=== PATIENT | female | born 1980 | race Caucasian/White ===

== ENCOUNTER 2019-04-12 15:16 | Inpatient (IN) | payer BC ==
[2019-04-12 15:58] VITALS: BMI 44.8
[2019-04-12] MEDS ORDERED: Promethazine HCl 25 MG/ML VIAL IM PRN ×3 (16:22→21:40)
[2019-04-12] MEDS ORDERED: Ondansetron PF 4 MG/2 ML Vial IVP PRN ×3 (16:22→21:40)
[2019-04-12] MEDS ORDERED: hydrALAZINE 20 MG/ML VIAL SLOW IVP PRN ×2 (16:22→21:40)
--- NOTE | 2019-04-12 16:27 | PDOC.LDHP ---
Labor and Delivery H&P HPI: 38 y/o at 38 and 4/7 weeks with Polyhydramnios, LGA Fetus measuring 10 pounds 8 ounces today. Patient has developed GHTN, but is declining induction of labor in favor of a . She is unwilling to accept the risks of delivering a fetus of this size. Current gestational age (weeks): 38 Due date: 04/22/19 Grav: 4 Para: 1 Current complications: gestational hypertension Abnormal US findings: Yes (LGA Fetus, Polyhydramnios) Current medications: pre- vitamins Allergies/Adverse Reactions: Allergies Allergy/AdvReac Type Severity Reaction Status Date / Time No Known Allergies Allergy Verified 04/12/19 15:59 Social history: none - Physical Exam Vital signs reviewed and normal: yes General: NAD Heart: RRR Lungs: CTAB Abdomen: gravid Extremeties: no edema FHT: category 1 - Assessment L&D Assessment: scheduled primary section - Plan Plan: admit to L&D, to OR for section
[2019-04-12] MEDS ORDERED: Bicitra 30 ML UDCUP PO SCH (16:30)
[2019-04-12] MEDS ORDERED: CEFAZOLIN 2 GM in Premix Bag 1 BAG IVPB SCH (16:30)
[2019-04-12] MEDS ORDERED: Lactated Ringer's 1,000 ML IV SCH (16:30)
[2019-04-12 16:31] LABS: Hemoglobin 10.4 g/dL (12.0-16.0); Mean Corpuscular HGB CONC 34.1 g/dL (32.0-36.0); Mean Corpuscular Hemoglobin 27.8 pg (27.0-31.0); Mean Corpuscular Volume 81.7 fL (78.0-98.0); Platelet Count 195 thou/uL (130-400); RBC Distribution Width 13.8 % (11.5-14.5); Red Blood Cell (RBC) Count 3.73 mill/uL (4.20-5.40); White Blood Cell (WBC) Count 12.8 thou/uL (4.8-10.8)
[2019-04-12] MEDS ORDERED: MORPHINE 5 MG/10 ML PF VIAL ONE (16:44)
[2019-04-12] MEDS ORDERED: EPHEDRINE 25 MG/5 ML SYRINGE ONE (16:44)
[2019-04-12] MEDS ORDERED: Ondansetron PF 4 MG/2 ML Vial ONE (16:44)
[2019-04-12] MEDS ORDERED: Oxytocin 10 UNITS/ML VIAL ONE ×2 (16:44→18:48)
[2019-04-12 17:11] LABS: Syphilis Antibody Nonreactive (Nonreactive); Syphilis Antibody Index 0.05 S/CO (<1.00 Non-Reactive)
[2019-04-12 17:12] LABS: HBSAg Index 0.24 S/CO (0-0.99); Hep B Surf Ag Non-Reactive S/CO (NonReactive)
[2019-04-12] MEDS ORDERED: Ketorolac Tromethamine 30 MG/ML VIAL ONE (19:09)
[2019-04-12] MEDS ORDERED: diphenhydrAMINE 50 MG/ML VIAL IVP PRN (20:19)
[2019-04-12] MEDS ORDERED: Meperidine HCl/PF 25 MG/ML VIAL SLOW IVP PRN (20:19)
[2019-04-12] MEDS ORDERED: L&D-Morphine 4 MG/ML VIAL SLOW IVP PRN (20:19)
[2019-04-12] MEDS ORDERED: Ketorolac Tromethamine 30 MG/ML VIAL IVP PRN (20:19)
[2019-04-12] MEDS ORDERED: Promethazine HCl 25 MG SUPP PR PRN (20:19)
[2019-04-12] MEDS ORDERED: HYDROmorphone 2 MG/ML VIAL SLOW IVP PRN (20:19)
[2019-04-12] MEDS ORDERED: Ondansetron HCl/PF 4 MG/2 ML Vial IVP PRN (20:19)
[2019-04-12] MEDS ORDERED: Naloxone HCl 0.4 mg/ml Vial IV PRN (20:19)
[2019-04-12] MEDS ORDERED: Naloxone HCl 0.4 mg/ml Vial IVP PRN ×2 (20:19)
[2019-04-12] MEDS ORDERED: Communication Order-Pharmacy FS SCH (20:30)
[2019-04-12] MEDS ORDERED: Ketorolac Tromethamine 30 MG/ML VIAL IVP SCH (20:30)
[2019-04-12] MEDS ORDERED: Morphine 4 MG/ML VIAL ONE (21:11)
[2019-04-12] MEDS ORDERED: HYDROcodone/Acetaminophen 5/325 mg Tablet PO PRN (21:40)
[2019-04-12] MEDS ORDERED: NS / Oxytocin 40 units/1000ml 1,000 ML IV SCH (21:40)
[2019-04-12] MEDS ORDERED: Zolpidem Tartrate 5 MG TAB PO PRN (21:40)
[2019-04-12] MEDS ORDERED: Misoprostol 200 MCG TAB PR PRN (21:40)
[2019-04-12] MEDS ORDERED: Lanolin Ointment 7 GM TUBE TOP PRN (21:40)
[2019-04-12] MEDS ORDERED: Bisacodyl 10 MG SUPP PR PRN (21:40)
[2019-04-12] MEDS ORDERED: Docusate Calcium (SURFAK) 240 MG CAP PO SCH (22:15)
[2019-04-12] MEDS: Simethicone Chewable 80 MG TAB PO PRN (22:47)
[2019-04-12] MEDS: Ibuprofen 800 MG TAB PO SCH (22:51)
[2019-04-13] MEDS: Ibuprofen 800 MG TAB PO SCH ×3 (05:52→21:26)
[2019-04-13 06:21] LABS: Hemoglobin 8.6 g/dL (12.0-16.0); Mean Corpuscular HGB CONC 32.3 g/dL (32.0-36.0); Mean Corpuscular Hemoglobin 27.4 pg (27.0-31.0); Mean Corpuscular Volume 84.6 fL (78.0-98.0); Mean Platelet Volume 10.9 fL (7.4-10.4); Platelet Count 154 thou/uL (130-400); RBC Distribution Width 13.7 % (11.5-14.5); Red Blood Cell (RBC) Count 3.13 mill/uL (4.20-5.40); White Blood Cell (WBC) Count 11.8 thou/uL (4.8-10.8)
[2019-04-13] MEDS ORDERED: Varicella virus, LIVE 0.5 ML VIAL SC ONE (09:00)
[2019-04-13] MEDS ORDERED: Measles/Mumps/Rubella 10 MCG/0.5 ML VIAL SC ONE (09:00)
[2019-04-13] MEDS ORDERED: Adacel (T-DAP) 0.5 ML SYRINGE IM ONE (09:00)
[2019-04-13] MEDS: Prenatal Vitamin 1 TAB PO SCH (09:37)
[2019-04-13] MEDS: Docusate Calcium (SURFAK) 240 MG CAP PO SCH ×2 (09:37→21:26)
[2019-04-13] MEDS: HYDROcodone/Acetaminophen 5/325 mg Tablet PO PRN ×3 (09:37→20:06)
--- NOTE | 2019-04-13 18:59 | PDOC.PP ---
Post Progress Note Post Day #: 1 PO intake tolerated: yes Flatus: yes Ambulation: yes Vital Signs (12 hours) Temp Pulse Resp BP Pulse Ox 04/13/19 17:10 98.8 F 87 16 130/88 96 04/13/19 11:50 98.5 F 81 20 121/57 L 04/13/19 08:15 98 04/13/19 08:05 98.4 F 79 20 128/65 98 Weight Weight 286 lb - Physical Examination General: NAD Cardiovascular: no m/r/g, RRR Respiratory: clear to auscultation bilaterally, non-labored breathing Abdominal: + bowel sounds, lochia, no distention, appropriately TTP Extremities: negative homans (B) Skin: CS incision dry & intact, no rash Neurological: no gross focal deficits Psychiatric: A&Ox3, normal affect Result Diagrams: 04/13/19 05:37 Additional Labs: Post Labs Blood Type B POSITIVE 04/12/19 17:42 Hep Bs Antigen Non-Reactive S/CO (NonReactive) 04/12/19 16:23
[2019-04-13] MEDS: Simethicone Chewable 80 MG TAB PO PRN (21:26)
[2019-04-14] MEDS: Ibuprofen 800 MG TAB PO SCH ×3 (05:53→21:42)
[2019-04-14] MEDS: Prenatal Vitamin 1 TAB PO SCH (10:12)
[2019-04-14] MEDS: Docusate Calcium (SURFAK) 240 MG CAP PO SCH ×2 (10:12→21:42)
[2019-04-14] MEDS: HYDROcodone/Acetaminophen 5/325 mg Tablet PO PRN ×2 (13:13→21:45)
[2019-04-14 20:18] VITALS: TEMP 98.8
[2019-04-14] MEDS: Simethicone Chewable 80 MG TAB PO PRN (21:42)
--- NOTE | 2019-04-15 00:10 | PDOC.PP ---
Post Progress Note Post Day #: 2 PO intake tolerated: yes Flatus: yes Ambulation: yes Vital Signs (12 hours) Temp Pulse Resp BP Pulse Ox 04/14/19 19:29 98.8 F 99 16 143/78 H 97 04/14/19 17:30 98.7 F 91 16 157/69 H 99 Weight Weight 286 lb - Physical Examination General: NAD Cardiovascular: no m/r/g, RRR Respiratory: clear to auscultation bilaterally, non-labored breathing Abdominal: + bowel sounds, lochia, no distention Extremities: negative homans (B) Skin: CS incision dry & intact, no rash Neurological: no gross focal deficits (DC tomorrow) Psychiatric: A&Ox3, normal affect Result Diagrams: 04/13/19 05:37 Additional Labs: Post Labs Blood Type B POSITIVE 04/12/19 17:42 Hep Bs Antigen Non-Reactive S/CO (NonReactive) 04/12/19 16:23
--- NOTE | 2019-04-15 02:12 | OP ---
DATE OF PROCEDURE: 04/12/2019 TIME OF SERVICE: 1823 hours. PREOPERATIVE DIAGNOSES: Intrauterine at 38 weeks and 4 days with gestational hypertension, polyhydramnios and large for gestational estimated to be 10 pounds 8 ounces by ultrasound. The patient has decided for primary section and does not want to undergo induction of labor for fear of potential injuries and maternal injuries. POSTOPERATIVE DIAGNOSES: Intrauterine at 38 weeks and 4 days with gestational hypertension, polyhydramnios and large for gestational infant estimated to be 10 pounds 8 ounces by ultrasound. The patient has decided for primary section and does not want to undergo induction of labor for fear of potential injuries and maternal injuries. PROCEDURE PERFORMED: Primary low transverse section. FINDINGS: Viable male infant weighing 4566 g or 10 pounds 1 ounce. Apgars of 8 and 9. QUANTITATIVE BLOOD LOSS: 785 mL. COMPLICATIONS: None. DETAILS OF THE PROCEDURE: The patient was consented and taken back to the operating room where spinal anesthesia was found to be adequate. She was then prepped and draped in the normal sterile fashion. A timeout was performed by the entire operative team. The incision was then marked with a marking pen tested using sharp pickups. An incision was then made with a scalpel. The incision was carried through the adipose tissue down to the underlying rectus fascia using both sharp dissection as well as cautery. Once the fascia was identified, it was incised in the midline and then the fascial incision was carried through in both lateral directions using sharp as well as cautery dissection techniques. Next, the superior aspect of the rectus fascia was grasped with 2 Jigar clamps, which was tented up and the rectus muscles were dissected off using blunt dissection as well as cautery dissection. Similarly, the inferior aspect of the fascial incision was grasped with 2 Jigar clamps, tented up and the rectus muscles were dissected off bluntly as well as sharply. Next, the rectus muscles were in the midline and the peritoneum identified. The peritoneum was then carefully grasped with 2 hemostats and entered sharply. The peritoneal incision was extended superiorly and inferiorly and bladder blade was placed in the lower abdomen. At this point, the uterus was identified and the bladder flap was then developed using pickups with teeth as well as Metzenbaum scissors in both lateral directions. The bladder flap was then dissected downwards using the yarn mercerizer operator helper's finger as well as Metzenbaum scissors. The bladder blade was replaced. The lower uterine segment was then identified and entered sharply using a clean scalpel. The uterine incision was then dissected downwards until thin layer of muscle remained and this was entered bluntly using a hemostat to avoid any injury to the baby. The uterine incision was then stretched using two fingers in both lateral directions. An amniotomy was performed artificially using a hemostat and the baby was delivered using fundal pressure in a gentle fashion. Once out, the baby's mouth and nose were bulb suctioned, cord clamped and cut, and the baby was handed to waiting attendants. Next, the uterus was exteriorized, cleared of all clots and debris and the uterine incision was repaired with #1 Monocryl in a running locking fashion. A 2nd suture of the same type was used to obtain complete hemostasis at the uterine incision. The bladder flap was reapproximated using 3-0 Monocryl. Next, patient's left and right adnexa were inspected and appeared to be within normal limits. The posterior cul-de-sac was blotted dry and hemostasis assured. One more look at the uterine incision demonstrated hemostasis. Next, the uterus was replaced back within the abdomen. The peritoneum was reapproximated using 2-0 Monocryl without difficulty. The rectus muscles were then allowed to come back together and 0 chromic was used to aid in reapproximation of the muscle as necessary. The rectus fascia was then reapproximated in a running fashion using 0 Vicryl suture. The adipose tissue was then examined and appeared to be well approximated without any obvious separations. Finally, the skin was reapproximated with 3-0 Monocryl on a Fabian needle without difficulty and Dermabond adhesive was applied to the skin. Once the glue was dry, the drapes were removed and the patient was transferred to an ambulatory bed where she was taken to recovery awake and in stable condition. Sponge, lap, and needle counts were correct x3. Job ID: [id number]
[2019-04-15 08:09] VITALS: BP 148/74
[2019-04-15] MEDS: Docusate Calcium (SURFAK) 240 MG CAP PO SCH (09:52)
[2019-04-15] MEDS: Prenatal Vitamin 1 TAB PO SCH (09:52)
[2019-04-15] MEDS: Ibuprofen 800 MG TAB PO SCH (09:52)
== END 2019-04-15 14:08 | disposition home or self-care (01) | DRG 788 ==
LOC: L&D 15:16 → 3SW 22:25
PROVIDERS: ADMIT Obstetrics & Gynecology; ATTEND Obstetrics & Gynecology
PROC: 10D00Z1 Extraction of Products of Conception, Low, Open Approach (ICD-10-PCS; principal; 2019-04-12)
DX: O40.3XX0 Polyhydramnios, third trimester, not applicable or unspecified (principal); O13.4 Gestational [pregnancy-induced] hypertension without significant proteinuria, complicating childbirth; O36.63X0 Maternal care for excessive fetal growth, third trimester, not applicable or unspecified; Z3A.38 38 weeks gestation of pregnancy; Z37.0 Single live birth
CPT/HCPCS: 36415; 51702; 85027; 86780; 86850; 86900; 86901; 87340; 90715; J0690; J1200; J1885; J2270; J2274; J2405; J2590

== ENCOUNTER 2019-12-03 06:56 | Outpatient (CLI) | payer BC, OTHER ==
[2019-12-03 16:29] LABS: #Basophils 0.2 thou/uL (0.0-0.2); #Eosinphils 0.1 thou/uL (0.0-0.7); #Lymphocytes 2.5 thou/uL (1.20-3.40); #Monocytes 0.6 thou/uL (0.11-0.59); #Neutrophils 4.3 thou/uL (1.40-6.50); %Basophils 2.1 % (0.0-1.0); %Eosinophils 1.5 % (0.0-10.0); %Lymphocytes 32.4 % (21.0-51.0); %Monocytes 7.8 % (0.0-10.0); %Neutrophils 56.2 % (42.0-75.0); Hemoglobin 12.1 g/dL (12.0-16.0); Mean Corpuscular HGB CONC 32.9 g/dL (32.0-36.0); Mean Corpuscular Hemoglobin 26.3 pg (27.0-31.0); Mean Corpuscular Volume 79.9 fL (78.0-98.0); Mean Platelet Volume 9.7 fL (7.4-10.4); Platelet Count 343 thou/uL (130-400); RBC Distribution Width 13.2 % (11.5-14.5); Red Blood Cell (RBC) Count 4.58 mill/uL (4.20-5.40); White Blood Cell (WBC) Count 7.6 thou/uL (4.8-10.8)
[2019-12-03 16:32] LABS: BHCG - Serum Negative (NEGATIVE); Pregs Control Background? CLEAR/WHITE (CLR/WHITE); Pregs Control Bar Appear? YES (CONTROL BAR)
[2019-12-03 16:50] LABS: ALT (SGPT) 32 U/L (8-55); AST (SGOT) 19 U/L (5-34); Albumin 4.5 g/dL (3.5-5.0); Alkaline Phosphatase 101 U/L (40-110); Anion Gap 16 mmol/L (10-20); BUN (Urea Nitrogen) 7 mg/dL (7.0-18.7); Bilirubin, Direct 0.1 mg/dL (0.1-0.3); Bilirubin, Total 0.3 mg/dL (0.2-1.2); Calc. Creatinine Clearance 0 mL/min (70-130); Calcium 9.2 mg/dL (7.8-10.44); Carbon Dioxide 22 mmol/L (22-29); Chloride 105 mmol/L (98-107); Estimated GFR-MDRD Greater than 90; Globulin 2.7 g/dL (2.4-3.5); Glucose 81 mg/dL (70-105); Potassium 3.3 mmol/L (3.5-5.1); Protein, Total 7.2 g/dL (6.0-8.3); Sodium 140 mmol/L (136-145)
[2019-12-04 12:01] LABS: SARS-CoV-2 MS2 Positive; SARS-CoV-2 N Gene Negative; SARS-CoV-2 S Gene Negative; SARS-CoV-2 by NAA Not Detected (NotDetected); SARS-CoV-2 orf1ab Negative
== END 2019-12-03 06:57 | disposition home or self-care (01) ==
LOC: LABBT 06:56
PROVIDERS: ATTEND Surgery
DX: Z01.812 Encounter for preprocedural laboratory examination (principal); K80.20 Calculus of gallbladder without cholecystitis without obstruction; Z20.828 Contact with and (suspected) exposure to other viral communicable diseases
CPT/HCPCS: 80053; 80076; 84703; 85025; 87635; U0003

== ENCOUNTER 2019-12-08 08:33 | Observation (INO) | payer BC ==
[2019-12-08] MEDS ORDERED: cefOXitin Sodium/Dextrose 2 GM/50 ML BAG ONE (08:57)
[2019-12-08] MEDS ORDERED: Bupivacaine/Epinephrine 0.25% 30 ML VIAL ONE ×2 (09:36→10:13)
[2019-12-08] MEDS ORDERED: PROPOFOL 200 MG/20 ML VIAL ONE (09:43)
[2019-12-08] MEDS ORDERED: Lidocaine 1% PF 5 ML VIAL ONE (09:43)
[2019-12-08] MEDS ORDERED: Rocuronium Bromide 10 MG/ML (10ML VIAL) ONE (09:43)
[2019-12-08] MEDS ORDERED: Ketorolac Tromethamine 30 MG/ML VIAL ONE (09:43)
[2019-12-08] MEDS ORDERED: Glycopyrrolate 0.2 MG/ML 5 ML SYRINGE ONE (09:43)
[2019-12-08] MEDS ORDERED: Ondansetron PF 4 MG/2 ML Vial ONE ×2 (09:43→13:36)
[2019-12-08] MEDS ORDERED: Dexamethasone 20 MG/5 ML VIAL ONE (09:43)
[2019-12-08] MEDS ORDERED: Midazolam HCl 2 mg/2 ml Vial ONE ×2 (10:15→10:19)
[2019-12-08] MEDS ORDERED: Fentanyl 100 MCG/2 ML VIAL ONE ×3 (10:15→12:11)
[2019-12-08] MEDS ORDERED: Morphine 4 MG/ML VIAL ONE (12:26)
[2019-12-08] MEDS ORDERED: Morphine 2 MG/ML VIAL ONE ×5 (15:11→19:39)
[2019-12-08 16:23] LABS: #Eosinphils 0.1 thou/uL (0.0-0.7); #Lymphocytes 0.9 thou/uL (1.20-3.40); #Monocytes 0.2 thou/uL (0.11-0.59); #Neutrophils 13.2 thou/uL (1.40-6.50); %Basophils 0.3 % (0.0-1.0); %Eosinophils 0.4 % (0.0-10.0); %Lymphocytes 6.1 % (21.0-51.0); %Monocytes 1.5 % (0.0-10.0); %Neutrophils 91.7 % (42.0-75.0); Hemoglobin 12.6 g/dL (12.0-16.0); Mean Corpuscular HGB CONC 32.1 g/dL (32.0-36.0); Mean Corpuscular Hemoglobin 25.6 pg (27.0-31.0); Mean Corpuscular Volume 79.5 fL (78.0-98.0); Platelet Count 323 thou/uL (130-400); RBC Distribution Width 13.3 % (11.5-14.5); Red Blood Cell (RBC) Count 4.94 mill/uL (4.20-5.40); White Blood Cell (WBC) Count 14.4 thou/uL (4.8-10.8)
[2019-12-08 16:56] LABS: ALT (SGPT) 87 U/L (8-55); AST (SGOT) 90 U/L (5-34); Albumin 4.4 g/dL (3.5-5.0); Alkaline Phosphatase 106 U/L (40-110); Bilirubin, Direct 0.2 mg/dL (0.1-0.3); Bilirubin, Total 0.5 mg/dL (0.2-1.2); Protein, Total 7.9 g/dL (6.0-8.3)
--- NOTE | 2019-12-08 20:43 | OP ---
DATE OF PROCEDURE: 12/08/2019 PREOPERATIVE DIAGNOSIS: Symptomatic cholelithiasis. PROCEDURE PERFORMED: Laparoscopic cholecystectomy. INDICATIONS: A 38-year-old female, who has been having episodic right upper quadrant pain, radiating to the back. Ultrasound showed cholelithiasis. FINDINGS: Multiple large stones. DESCRIPTION OF PROCEDURE: After informed consent was obtained, the patient was taken to the operating room, given general endotracheal anesthesia. She was placed in supine position. Abdomen was prepped and draped in usual fashion. Local anesthesia was infiltrated subcutaneously and deep, and a subumbilical incision was performed. Subcu divided sharply. The fascia was grasped and 2 stay sutures of 0 Vicryl placed on either side of midline. Midline incised. Digital palpation revealed no local adhesions. A blunt 12 mm trocar inserted. Pneumoperitoneum was created to a pressure of 15 mmHg. Under direct vision, three 5-mm ports were placed subcostally. The gallbladder grasped, advanced superiorly. The peritoneum dissected distally to expose the cystic duct, artery in critical view. The duct and artery were triply ligated with hemoclips and divided. The gallbladder removed from its fossa utilizing electrocautery and was placed in an Endosac and removed from the abdomen in the Endosac. The stones were so large, I had to enlarge the skin opening in order to get it out. The fascia was closed with interrupted 2-0 Vicryl sutures. The skin closed with interrupted 4-0 Rapide. Dermabond applied. The patient tolerated the procedure well, transferred to Recovery in good condition. Sponge and needle count verified correct x2. Job ID: [id number]
[2019-12-08] MEDS ORDERED: Ondansetron PF 4 MG/2 ML Vial IVP PRN (21:07)
[2019-12-08] MEDS: Morphine 4 MG/ML VIAL SLOW IVP PRN ×2 (21:14→23:16)
[2019-12-08] MEDS: D5 1/2 NS w/20 mEq KCL 1,000 ML IV SCH (21:14)
[2019-12-09] MEDS: Morphine 2 MG/ML VIAL SLOW IVP PRN ×2 (02:38→05:00)
[2019-12-09] MEDS: D5 1/2 NS w/20 mEq KCL 1,000 ML IV SCH ×3 (05:00→20:43)
[2019-12-09 06:38] LABS: ALT (SGPT) 69 U/L (8-55); AST (SGOT) 36 U/L (5-34); Albumin 4.3 g/dL (3.5-5.0); Alkaline Phosphatase 97 U/L (40-110); Bilirubin, Direct 0.3 mg/dL (0.1-0.3); Bilirubin, Total 0.8 mg/dL (0.2-1.2)
[2019-12-09] MEDS: Morphine 4 MG/ML VIAL SLOW IVP PRN ×3 (07:12→13:01)
[2019-12-09 07:20] LABS: #Eosinphils 0.2 thou/uL (0.0-0.7); #Lymphocytes 1.6 thou/uL (1.20-3.40); #Monocytes 0.9 thou/uL (0.11-0.59); #Neutrophils 11.2 thou/uL (1.40-6.50); %Basophils 0.3 % (0.0-1.0); %Eosinophils 1.3 % (0.0-10.0); %Lymphocytes 11.4 % (21.0-51.0); %Monocytes 6.7 % (0.0-10.0); %Neutrophils 80.3 % (42.0-75.0); Hemoglobin 12.2 g/dL (12.0-16.0); Mean Corpuscular HGB CONC 31.6 g/dL (32.0-36.0); Mean Corpuscular Hemoglobin 25.9 pg (27.0-31.0); Mean Corpuscular Volume 82.1 fL (78.0-98.0); Mean Platelet Volume 9.1 fL (7.4-10.4); Platelet Count 313 thou/uL (130-400); RBC Distribution Width 13.2 % (11.5-14.5)
--- NOTE | 2019-12-09 16:14 | PRG ---
DATE OF SERVICE: 12/09/2019 SUBJECTIVE: The patient is feeling much better. This morning, she was still hurting quite a bit. LFTs were still bumped a little bit. On exam, she looks much better. She is hungry. PLAN: Plan is to advance diet, probably go home in the morning. Job ID: [id number]
[2019-12-09] MEDS: Acetaminophen 325 MG TAB PO PRN ×2 (19:04→23:13)
[2019-12-10] MEDS: D5 1/2 NS w/20 mEq KCL 1,000 ML IV SCH ×2 (06:30→12:46)
--- NOTE | 2019-12-10 11:19 | DIS ---
DATE OF ADMISSION: 12/08/2019 DATE OF DISCHARGE: 12/10/2019 DISCHARGE DIAGNOSIS: Severe postoperative pain. PROCEDURES DURING ADMISSION: IV hydration and pain control. HOSPITAL COURSE: The patient was admitted and given narcotics. Pain became controlled. Repeat LFTs were coming down. Just some mild transaminase elevation. Diet was advanced. She is now doing well. She is discharged home on hydrocodone and Zofran. She will follow up with me in 2 weeks. Job ID: [id number]
[2019-12-10 11:25] VITALS: BP 129/80; TEMP 98.5
[2019-12-10] MEDS: Acetaminophen 325 MG TAB PO PRN (11:42)
== END 2019-12-10 13:45 | disposition home or self-care (01) ==
LOC: SDC 08:33 → SJJU 15:54
PROVIDERS: ADMIT Surgery; ATTEND Surgery
PROC: 0FT44ZZ Resection of Gallbladder, Percutaneous Endoscopic Approach (ICD-10-PCS; principal; 2019-12-08)
DX: K80.10 Calculus of gallbladder with chronic cholecystitis without obstruction (principal); F32.9 Major depressive disorder, single episode, unspecified; Z79.899 Other long term (current) drug therapy; Z88.7 Allergy status to serum and vaccine
CPT/HCPCS: 36415; 80076; 85025; 88304; 96361; 96374; 96376; G0378; J0694; J1100; J1885; J2250; J2270; J2405; J2704; J3010; J3480